=== PATIENT | female | born 2000 | race African-American/Black ===

== ENCOUNTER 2021-01-13 07:03 | Emergency (ER) | payer OTHER ==
[~2021-01-13] VITALS: Ht 165.1 cm; Wt 64.4 kg
[2021-01-13 07:16] VITALS: BP_SYST 152
[2021-01-13] MEDS ORDERED: KETOROLAC TROMETHAMINE 60 MG/2 ML VIAL IM ONE (07:45)
[2021-01-13] MEDS ORDERED: IBUPROFEN 800 MG TABLET PO ONE (07:45)
[2021-01-13 08:06] LABS: BASOPHILS % (AUTO) 0.5 % (0.0-2.0); EOSINOPHILS % (AUTO) 0.3 % (0.0-4.0); HEMOGLOBIN 12.7 g/dL (12.0-16.0); LYMPHOCYTES # (AUTO) 2.5 K/uL (1.0-5.5); LYMPHOCYTES % (AUTO) 33.7 % (20.5-51.5); MEAN CORPUSCULAR HEMOGLOBIN 27 pg (27-31); MEAN CORPUSCULAR HGB CONC 33 % (32-36); MEAN CORPUSCULAR VOLUME 84 fL (79.0-98.0); MONOCYTES # (AUTO) 0.6 K/uL (0.0-1.0); MONOCYTES % (AUTO) 7.5 % (1.7-9.3); NEUTROPHILS # (AUTO) 4.3 K/uL (1.8-7.7); PLATELET COUNT (AUTO) 154 K/uL (130-430); RED BLOOD CELL COUNT(AUTO) 4.62 MIL/uL (4.2-6.2); RED CELL DISTRIBUTION WIDTH 14.3 % (9.0-15.0); WHITE BLOOD COUNT (AUTO) 7.4 K/uL (4.5-11.0)
[2021-01-13] MEDS ORDERED: IBUP-1969 PO (08:24)
[2021-01-13] MEDS ORDERED: CEPH250C PO (08:25)
[2021-01-13 08:26] LABS: CALCIUM 9.4 mg/dL (8.4-11.0); CREATININE 0.82 mg/dL (0.55-1.30); POTASSIUM 3.7 mmol/L (3.5-5.1)
[2021-01-13 08:31] LABS: TOTAL BILIRUBIN 0.4 mg/dL (0.0-1.0)
[2021-01-13 09:05] VITALS: BP_SYST 152
== END 2021-01-13 09:05 | disposition home or self-care (01) ==
LOC: SED 07:03
DX: N39.0 Urinary tract infection, site not specified (principal); Z79.899 Other long term (current) drug therapy
CPT/HCPCS: 36415; 80053; 81002; 81025; 85025; 96372; 99283; J1885

== ENCOUNTER 2021-12-22 15:06 | Emergency (ER) | payer MEDICAID, OTHER ==
[~2021-12-22 15:06] MED LIST: CEPH250C PO; IBUP-1969 PO
[2021-12-22 17:35] VITALS: BP_SYST 128
== END 2021-12-22 21:17 | disposition left against medical advice (07) ==
LOC: SED 15:06
DX: O98.511 Other viral diseases complicating pregnancy, first trimester (principal); O26.891 Other specified pregnancy related conditions, first trimester; Z3A.01 Less than 8 weeks gestation of pregnancy; Z53.21 Procedure and treatment not carried out due to patient leaving prior to being seen by health care provider